=== PATIENT | male | born 1965 | race Caucasian/White ===

== ENCOUNTER → 2021-01-14 11:03 | Outpatient (CLI) | payer OTHER, SELFPAY ==
[2021-01-11 16:24] VITALS: BMI 32.8
[2021-01-14 13:03] LABS: AST(SGOT) 64 U/L (15-37); Alanine Aminotransfer ALT/SGPT 108 U/L (16-61); Albumin, Serum 3.9 g/dL (3.2-5.0); Alkaline Phosphatase 96 U/L (45-117); Anion Gap 7 (5-15); BUN 14 mg/dL (7-18); BUN/Creat Ratio 15.1 RATIO (10-20); Calcium,Total 9.3 mg/dL (8.5-10.1); Chloride 102 mmol/L (98-107); Creatinine, Serum 0.93 mg/dL (0.70-1.30); EST Glomerular Filtration Rate 91 mL/min (>60); Est Glom Filt Rate - Afr Amer 110 mL/min (>60); Globulin 3.8 g/dL (2.2-4.2); Glucose 119 mg/dL (74-106); Potassium 4.2 mmol/L (3.5-5.1); Protein, Total 7.7 g/dL (6.4-8.2); Sodium Level 136 mmol/L (136-145)
== END ==
PROVIDERS: PCP Internal Medicine; Referring Provider Nurse Practitioner Family; Visit Provider Nurse Practitioner Family
DX: E11.9 Type 2 diabetes mellitus without complications (principal)
CPT/HCPCS: 36415; 80053

== ENCOUNTER → 2021-01-17 15:31 | Outpatient (CLI) | payer OTHER, SELFPAY ==
[2021-01-11 16:24] VITALS: BMI 32.8
--- NOTE | 2021-01-17 15:34 | EKG12_ITS ---
Test Reason : FOLLOW UP Blood Pressure : / mmHG Vent. Rate : 073 BPM Atrial Rate : 073 BPM P-R Int : 152 ms QRS Dur : 102 ms QT Int : 398 ms P-R-T Axes : 036 022 020 degrees QTc Int : 438 ms Normal sinus rhythm Nonspecific ST and T wave abnormality Abnormal ECG Confirmed by SAMANTA ATWOOD, ALFREDO ([id number]), communicable disease specialist SOCORRO VALDIVIA ([id number]) on 01/18/2021 8:59:41 AM Referred By: Delio Barragan Confirmed By:ALFREDO ENGLAND MD
== END ==
PROVIDERS: PCP Internal Medicine; Referring Provider Nurse Practitioner Family; Visit Provider Nurse Practitioner Family
DX: I10 Essential (primary) hypertension (principal); E11.9 Type 2 diabetes mellitus without complications
CPT/HCPCS: 93005

== ENCOUNTER 2021-02-02 16:30 | Outpatient (RCR) | payer OTHER, SELFPAY ==
[2021-01-11 16:24] VITALS: BMI 32.8
== END 2021-02-15 23:59 ==
LOC: DC 16:30
PROVIDERS: PCP Internal Medicine; Visit Provider Nurse Practitioner Family
DX: E11.9 Type 2 diabetes mellitus without complications (principal)
CPT/HCPCS: G0108

== ENCOUNTER 2021-02-16 16:27 | Outpatient (RCR) | payer OTHER, SELFPAY ==
[2021-02-15 15:54] VITALS: BMI 31.6
== END 2021-02-16 23:59 | disposition home or self-care (01) ==
LOC: DC 16:27
PROVIDERS: PCP Internal Medicine; Visit Provider Nurse Practitioner Family
DX: E11.9 Type 2 diabetes mellitus without complications (principal)
CPT/HCPCS: G0108

== ENCOUNTER → 2021-02-17 15:33 | Outpatient (CLI) | payer OTHER, SELFPAY ==
[2021-02-15 15:54] VITALS: BMI 31.6
[2021-02-17 07:56] LABS: Cholesterol 190 mg/dL (200); Free T3 2.7 pg/mL (2.18-3.98); High Density Lipoprotein 41 mg/dL; PSA,Total - Annual Screen 0.53 ng/mL (0.00-4.00); T4 Free Direct 1.05 ng/dL (0.76-1.46); Triglycerides 100 mg/dL; Very Low Density Lipoprotein 20 mg/dL (5-40)
[2021-02-17 07:59] LABS: Vitamin D,25 Hydroxy 23.9 ng/mL
--- NOTE | 2021-02-17 15:34 | EKG12_ITS ---
Test Reason : IRREGULAR RYTHM Blood Pressure : / mmHG Vent. Rate : 072 BPM Atrial Rate : 072 BPM P-R Int : 152 ms QRS Dur : 106 ms QT Int : 414 ms P-R-T Axes : 031 -39 016 degrees QTc Int : 453 ms Normal sinus rhythm Left axis deviation Incomplete right bundle branch block Poor R wave progression Abnormal ECG Confirmed by SAMANTA ATWOOD, ALFREDO ([id number]), manager editorial NAE GUARDADO ([id number] on 02/22/2021 7:59:41 AM Referred By: Cely Mancilla Confirmed By:ALFREDO ENGLAND MD
== END ==
PROVIDERS: PCP Internal Medicine; Referring Provider Internal Medicine; Visit Provider Internal Medicine
DX: I10 Essential (primary) hypertension (principal); N52.9 Male erectile dysfunction, unspecified; E11.9 Type 2 diabetes mellitus without complications; E66.9 Obesity, unspecified; R94.31 Abnormal electrocardiogram [ECG] [EKG]; Z76.89 Persons encountering health services in other specified circumstances
CPT/HCPCS: 36415; 80061; 82306; 84153; 84439; 84443; 84481; 93005; G0103

== ENCOUNTER → 2021-03-13 06:16 | Outpatient (CLI) | payer OTHER, SELFPAY ==
[2021-02-15 15:54] VITALS: BMI 31.6
--- NOTE | 2021-03-13 08:11 | STRESSREP_ITS ---
Stress Test Report Date: 03-13-2021 Procedure: Exercise tolerance test/imaging study Indications: Abnormal ECG Consent: Per the patient Procedure: The patient exercised on a Noe protocol for 8 minutes completing Stage II and 2 minutes of Stage III achieving a peak heart rate of 169 bpm (101% predicted maximal heart rate) with a peak blood pressure 182/82 mmHg and a peak MET capacity of 9 METs. The baseline ECG demonstrated sinus rhythm; incomplete right bundle branch block; nonspecific T wave abnormality. The peak exercise ECG demonstrated somatic/motion artifact with no obvious ECG changes. There was a rare PVC during exercise and recovery. The functional capacity was considered good. There was no complaint of chest discomfort during exercise or recovery. The examination was discontinued secondary to leg discomfort. Impression: 1. Technically adequate (percent predicted maximal heart rate greater than 85%) exercise tolerance test 2. Peak exercise ECG with somatic/motion artifact with no obvious ECG changes 3. There was a rare PVC during exercise and recovery 4. Nuclear images pending Myocardial perfusion imaging study: Technique: The patient was injected with mCi of technetium 99m Cardiolite and subsequently rest SPECT Cardiolite nuclear imaging was obtained in the horizontal long, vertical long, and short axis views. The patient exercised on a Noe protocol for 8 minutes completing Stage II and 2 minutes of Stage III achieving a peak heart rate of 169 bpm (101% predicted maximal heart rate) with a peak blood pressure 182/82 mmHg and a peak MET capacity of 9 METs. The patient was injected with mCi of technetium 99m Cardiolite and subsequently stress SPECT Cardiolite nuclear imaging was obtained in the horizontal long, vertical long, and short axis views. A gated Cardiolite study at peak stress was obtained. Interpretation: Rest and stress SPECT Cardiolite nuclear imaging status post realignment, nor malization, and attenuation correction, demonstrates the appearance of a small area of subtle diminished tracer uptake near the apical segments without significant change between rest and stress. There is end systolic thickening and brightening. The gated Cardiolite study demonstrates myocardial thickening and inward wall motion. The reported LVEF is 62%. Impression: 1. Rest and stress SPECT Cardiolite nuclear imaging demonstrate myocardial perfusion changes appearing compatible with the effects of physiologic apical thinning with no myocardial perfusion changes considered diagnostic for associated stress-induced myocardial ischemia. 2. The gated Cardiolite study reports an LVEF of 62%. This note was generated with [employer] software. It may contain incorrect words, spelling, and punctuation that were not noted in checking the note before signing.
== END ==
PROVIDERS: PCP Internal Medicine; Referring Provider Internal Medicine; Visit Provider Internal Medicine
DX: R94.31 Abnormal electrocardiogram [ECG] [EKG] (principal); I10 Essential (primary) hypertension; E11.9 Type 2 diabetes mellitus without complications
CPT/HCPCS: 78452; 93017; A9500; A4216